=== PATIENT | female | born 1975 | race Two or more races ===

== ENCOUNTER 2024-06-08 23:49 | Emergency (ER) | payer BC ==
[2024-06-08 23:55] VITALS: BP 124/77; PULSE 77; RESP 18; TEMP 98.3; BMI 27.3
[2024-06-09] MEDS ORDERED: KETOROLAC TROMETHAMINE 30 MG/1 ML VIAL ONE (00:41)
[2024-06-09] MEDS: KETOROLAC TROMETHAMINE 30 MG/1 ML VIAL IM ONE (00:47)
== END 2024-06-09 04:39 | disposition left against medical advice (07) ==
LOC: JER 23:49
PROC: 3E0133Z Introduction of Anti-inflammatory into Subcutaneous Tissue, Percutaneous Approach (ICD-10-PCS; principal; 2024-06-09)
DX: M25.572 Pain in left ankle and joints of left foot (principal); M25.472 Effusion, left ankle; Y99.0 Civilian activity done for income or pay
CPT/HCPCS: 73610-TC-LT-FY; 73630-TC-LT; 99284-25